=== PATIENT | male | born 1960 | race Caucasian/White ===

== ENCOUNTER 2017-08-16 08:33 | Day surgery (SDC) | payer OTHER ==
--- NOTE | 2017-08-11 11:14 | HP ---
DATE OF ADMISSION: 08/16/2017 DATE OF DICTATION: 08/10/2017 Patient to be admitted through the Ambulatory Surgical Service at [facility] in the near future, date to be determined. HISTORY: A 56-year-old man admitted through the Ambulatory Surgical Service for laparoscopic removal of his gallbladder as management of symptomatic cholelithiasis and chronic cholecystitis. For the past few years, the patient has had several bouts of severe chest and upper abdominal discomfort. His last attack was in April 2016. At that time, an ultrasound evaluation of the abdomen had demonstrated evidence of multiple gallstones with a mildly thickened gallbladder wall. Patient had been advised to consider cholecystectomy but had declined in the past. At this juncture, however, he has decided to move forward with cholecystectomy. As he also suffers with GERD, it is sometimes difficult to differentiate whether his symptoms are related to his reflux or his gallbladder. No underlying fatty food intolerance by history. No unintentional weight loss. No history of jaundice. PAST MEDICAL HISTORY: Nil except an underlying thyroid disorder. No history of heart disease, hypertension, diabetes, respiratory, renal, or hepatic insufficiency. PAST SURGICAL HISTORY: Significant for bilateral laparoscopic inguinal hernia repair in 2003. ALLERGIES: Possibly IODINE as he is allergic to SHRIMP. No other known medication allergies. CURRENT MEDICATIONS: Prilosec, levothyroxine. SOCIAL HISTORY: Positive tobacco, 1/2 pack per day. Positive alcohol, 2 drinks a day. FAMILY HISTORY: Father with a history of CVA and Alzheimer disease. Mother and siblings well. REVIEW OF SYSTEMS: Nil. PHYSICAL EXAMINATION: Abdomen: Large, soft, nontender. No palpable findings. Gallbladder ultrasound of April 22, 2016, demonstrates multiple gallstones with mild thickening of the gallbladder wall. IMPRESSION: Chronic cholecystitis/symptomatic cholelithiasis. PLAN: Laparoscopic cholecystectomy/possible open cholecystectomy. Indications, alternatives, and possible complications reviewed. Consent obtained. Patient will be seen preoperatively by Dr. Jabari Parada. Please refer to his notes for those medical details. FRANCHESKA OLIVARES M.D. [id number] cc: Jabari Parada MD [facility]
[2017-08-16 09:46] VITALS: BMI 33.2
[2017-08-16] MEDS ORDERED: morphine SULFATE 4 MG/ML VIAL IVPB PRN (11:01)
[2017-08-16] MEDS ORDERED: ONDANSETRON 4 MG/2 ML VIAL IVPUSH PRN (11:01)
[2017-08-16] MEDS ORDERED: ACETAMINOPHEN 325 MG TABLET (FP) PO PRN (11:01)
[2017-08-16] MEDS ORDERED: oxyCODONE HCL 5 MG TABLET PO PRN (11:01)
[2017-08-16] MEDS ORDERED: D5-1/2NS+20 MEQ KCL - 20 MEQ/1,000 ML INFUS.BAG IV SCH (11:15)
[2017-08-16] MEDS ORDERED: LACTATED RINGERS SOLUTION 1,000 ML IV SCH (11:45)
--- NOTE | 2017-08-16 20:50 | OP ---
DATE OF OPERATION: 08/16/2017 PREOPERATIVE DIAGNOSIS: Chronic cholecystitis/cholelithiasis. POSTOPERATIVE DIAGNOSIS: Chronic cholecystitis/cholelithiasis. PROCEDURE: Laparoscopic cholecystectomy. OPERATING SURGEON: Bobby Garcia MD HUMAN PERFORMANCE PROFESSOR: Fransisco Cuba MD ANESTHESIA: Pat Lopez MD - General. HISTORY: A 56-year-old man admitted to the hospital for laparoscopic removal of his gallbladder as management of chronic cholecystitis and cholelithiasis. Indications, alternatives, possible complications reviewed. Consent obtained. DESCRIPTION OF PROCEDURE: With the patient in supine position, using general anesthesia, the abdomen was prepped and draped in sterile fashion using chlorhexidine. A small infraumbilical incision was made, through which a Veress needle was placed into the abdominal cavity. The abdominal cavity was insufflated to an adequate pressure and volume using CO2 gas. The Veress needle was removed, and an 11-mm trocar port placed through the infraumbilical wound. The camera lens was passed through the infraumbilical port. The intraabdominal cavity was visualized. Under direct vision, two 5-mm right anterolateral ports were placed, through which clamps were passed to maintain traction on the gallbladder and aid in the dissection. An 11-mm port was placed in the epigastrium, through which the operating instruments were passed. Limited exploration revealed significant adhesions enveloped the gallbladder. These were taken down under direct vision, exposing the entire gallbladder and hepatoduodenal ligament. No other significant findings were encountered other than the gallbladder appeared mildly thickened. The peritoneum of the hepatoduodenal ligament was incised. The cystic duct was identified. The cystic duct and bile duct junction was noted. The cystic duct was clipped proximally and distally and divided. The adjacent artery was managed similarly. The gallbladder was then removed from the gallbladder bed, lysing its attachment using electrocautery. Prior to complete disconnection, bed was inspected and adequate hemostasis ensured. The gallbladder was disconnected. All ports were then removed under direct vision. No bleeding identified. Ultimately, the gallbladder was passed and delivered through the umbilical port site. The gas was allowed to escape from the peritoneal cavity. The fascia at the umbilicus was approximated with interrupted No. 1 Vicryl sutures. All skin wounds were closed using subcuticular 4-0 Biosyn sutures. Needle, sponge, and instrument count correct. ESTIMATED BLOOD LOSS: Minimal. SPECIMEN: Gallbladder. DRAINS: None. The patient tolerated the procedure. The procedure was terminated. Eneida [id number] MTDD
[2017-08-17] MEDS ORDERED: LEVOTHYROXINE NA 100 MCG TABLET (FP) PO SCH (07:00)
[2017-08-17 07:14] VITALS: BP 115/98; PULSE 70; TEMP 97.6
--- NOTE | 2017-08-17 09:36 | PN ---
Progress Note (short form) - Note Progress Note: 56M POD1 s/p lap cholecystectomy under [facility]. Pt states that his pain is well controlled and reports no anesthetic complications. AVSS. Pt seen walking comfortably around the floor. D/C planning as per primary team.
[2017-08-17] MEDS ORDERED: ENOXAPARIN NA (PORCINE) 40 MG/0.4 ML DISP.SYRIN SQ SCH (10:00)
[2017-08-17] MEDS ORDERED: PANTOPRAZOLE SODIUM 40 MG VIAL IVPUSH SCH (10:00)
--- NOTE | 2017-08-18 15:12 | PATH ---
Surgical Pathology Report Patient Name: [facility]. Rec. #: [id number] /Age/Gender: 1960 (Age: 56) / M Account: [id number] Location: [facility] AMBULATORY Taken: 08/16/2017 Received: 08/16/2017 Reported: 08/18/2017 Physicians: Bobby Garcia M.D. Specimen(s) Received GALLBLADDER Clinical History Chronic cholecystitis, symptomatic cholelithiasis Final Diagnosis GALLBLADDER, CHOLECYSTECTOMY: CHRONIC CHOLECYSTITIS AND CHOLELITHIASIS. PERICYSTIC LYMPH NODE WITH NONCASEATING GRANULOMAS AND LIPOGRANULOMAS. ACID FAST AND FUNGAL (PAS) STAINS ARE NEGATIVE. Comment: The presence of noncaseating and lipogranulomas within the pericystic lymph node is a nonspecific finding, and may be the result of lymphatic obstruction, radiologic contrast material, or a reaction to lipid material and blood stream. The possibility of sarcoid and also not be completely excluded. Recommend correlation with clinical findings and follow up as clinically indicated. Electronically Signed Tarik Bobo M.D. Gross Description Received in formalin, labeled "gallbladder," is a 8.5 x 2.3 x 2.3 cm. gallbladder with a 0.3 cm. in length portion of cystic duct attached. There is a 0.6 cm greatest dimension periductal lymph node present. The outer surface is holt green and varies from smooth to shaggy. The lumen contains green, tenacious bile as well as multiple brown, irregular choleliths averaging 1.2 cm in greatest dimension. The mucosa is green and velvety with focal erosions. The wall of the gallbladder measures 0.1 cm. in thickness. Cocktail Server sections including one bisected lymph node are submitted in one cassette. 08/17/201708/17/2017
== END 2017-08-17 11:00 | disposition home or self-care (01) ==
LOC: FASU 08:33 → FM/S 16:55 → FASU 08-17 11:00
PROVIDERS: ATTEND Surgery
PROC: 0FT44ZZ Resection of Gallbladder, Percutaneous Endoscopic Approach (ICD-10-PCS; principal; 2017-08-16 12:40)
DX: K80.10 Calculus of gallbladder with chronic cholecystitis without obstruction (principal)
CPT/HCPCS: 88304-TC; 88312-TC; 94010; 94760

== ENCOUNTER 2017-10-30 07:27 | Day surgery (SDC) | payer OTHER ==
[2017-10-25 11:17] VITALS: BMI 34.0
[2017-10-30] MEDS ORDERED: PROPOFOL 20 ML ONE ×2 (07:31)
[2017-10-30] MEDS ORDERED: LIDOCAINE HCL/PF 2% SDV 5ML VIAL ONE (07:33)
[2017-10-30 09:31] VITALS: TEMP 98
[2017-10-30 09:53] VITALS: PULSE 58
[2017-10-30 09:56] VITALS: BP 110/56
== END 2017-10-30 09:54 | disposition home or self-care (01) ==
LOC: FASU-ENDO 07:27
PROVIDERS: ATTEND Internal Medicine Gastroenterology
PROC: 0DJD8ZZ Inspection of Lower Intestinal Tract, Via Natural or Artificial Opening Endoscopic (ICD-10-PCS; principal; 2017-10-30 09:03)
DX: Z12.11 Encounter for screening for malignant neoplasm of colon (principal); Z83.71 Family history of colonic polyps; K57.30 Diverticulosis of large intestine without perforation or abscess without bleeding

== ENCOUNTER 2020-02-21 10:29 | Emergency (ER) | payer OTHER ==
--- NOTE | 2020-02-21 10:59 | TELE ---
HPI Do you have fever,cough or shortness of breath?: No - General Reason For Visit: COVID 19 TEST History Source: Patient Past History - Medical History Allergies/Adverse Reactions: Allergies Allergy/AdvReac Type Severity Reaction Status Date / Time No Known Drug Allergies Allergy Verified 10/25/17 11:17 shrimp Allergy Severe wheezing Uncoded 10/25/17 11:17 Home Medications: Ambulatory Orders Allopurinol 300 mg PO DAILY 10/25/17 Anemia: No Asthma: No Cancer: No Cardiac Disorders: No CVA: No COPD: No CHF: No Dementia: No Diabetes: No GI Disorders: No Disorders: No HTN: No Hypercholesterolemia: No Liver Disease: No Seizures: No Thyroid Disease: Yes (HYPOTHYROIDISM) - Surgical History Abdominal Surgery: Yes (RIGHT INGUINAL HERNIA REPAIR ABOUT 2005) Appendectomy: No Cardiac Surgery: No Cholecystectomy: Yes Lung Surgery: No Neurologic Surgery: No Orthopedic Surgery: No - Immunization History Td Vaccination: Yes Immunization Up to Date: No - Psycho-Social/Smoking History Smoking Status: Yes Smoking History: Current every day smoker Have you smoked in the past 12 months: Yes Number of Cigarettes Smoked Daily: 10 If you are a former smoker, when did you quit?: 08/10/17 'Breaking Loose' booklet given: 04/22/16 Review of Systems - Review of Systems Constitutional: No: Chills, Fever Respiratory: No: Shortness of Breath Cardiac (ROS): No: Chest Pain *Physical Exam - Physical Exam HEENT: positive: Normal Voice - Medical Decision Making 02/21/20 10:58 Pt requested covid test specifically for Monday in prep for cardiac procedure next Has no sxs at this time Discharge Diagnosis at time of Disposition: Encounter by telehealth for suspected COVID-19 - Referrals Follow-up Referral(s): Jabari Parada MD [Primary Care Provider] - - Patient Instructions - Discharge Disposition: HOME
== END 2020-02-21 10:59 | disposition home or self-care (01) ==
LOC: JVIRT 10:29
DX: Z11.59 Encounter for screening for other viral diseases (principal)
CPT/HCPCS: Q3014-GT; U0003

== ENCOUNTER 2020-11-13 09:33 | Emergency (ER) | payer SELFPAY | END 2020-11-13 12:01 | disposition home or self-care (01) | LOC: JVIRT 09:33 | DX: Z11.52 Encounter for screening for COVID-19 (principal) | CPT/HCPCS: Q3014-GT ==

== ENCOUNTER 2021-08-05 19:24 | Observation (INO) | payer OTHER ==
[2021-08-05 20:40] LABS: ALBUMIN 3.7 g/dl (3.4-5.0); BILIRUBIN,TOTAL 0.6 mg/dl (0.2-1); CALCIUM 9.6 mg/dl (8.5-10); CREATININE 1.1 mg/dl (0.55-1.3); MAGNESIUM 1.9 mg/dL (1.8-2.4); TOT PROT 6.3 g/dl (6.4-8.2)
[2021-08-05 21:44] LABS: EOS % 3.7 % (0-4.5); HEMATOCRIT 44.1 % (35.4-49); HEMOGLOBIN 15.5 GM/dL (11.7-16.9); LYMPH % 31.3 % (8-40); MCH 34.7 pg (25.7-33.7); MCHC 35.2 g/dl (32.0-35.9); MEAN CELL VOLUME 98.5 fl (80-96); MEAN PLT VOLUME 8.2 fl (7.5-11.1); MONO % 7.7 % (3.8-10.2); NEUT % 56.3 % (42.8-82.8); PLATELET COUNT 161 10^3/uL (134-434); RBC 4.48 M/mm3 (4.00-5.60); RDW 12.9 % (11.9-15.9); WHITE BLOOD COUNT 5.2 K/mm3 (4.0-10.0)
[2021-08-05] MEDS ORDERED: POLYETHYLENE GLYCOL (HEALTHYLAX) 3350 17 GM PACKET PO PRN (23:05)
[2021-08-05] MEDS ORDERED: ACETAMINOPHEN 325 MG TABLET (FP) PO PRN (23:05)
[2021-08-05 23:50] VITALS: BMI 38.0
[2021-08-06] MEDS: PANTOPRAZOLE 20 MG TABLET PO SCH (06:37)
[2021-08-06] MEDS ORDERED: LEVOTHYROXINE NA 100 MCG TABLET (FP) ONE (09:27)
[2021-08-06 09:28] LABS: CALCIUM 9.2 mg/dl (8.5-10); CREATININE 1.1 mg/dl (0.55-1.3); MAGNESIUM 1.9 mg/dL (1.8-2.4)
[2021-08-06] MEDS ORDERED: LEVOTHYROXINE NA 75 MCG TABLET (FP) ONE (09:28)
[2021-08-06] MEDS: APIXABAN 5 MG TABLET PO SCH ×2 (09:29→21:23)
[2021-08-06] MEDS: LEVOTHYROXINE 75 MCG, LEVOTHYROXINE 100 MCG PO SCH (09:30)
[2021-08-06] MEDS: ALLOPURINOL 100 MG TABLET (FP) PO SCH ×2 (09:31→21:23)
[2021-08-06] MEDS: CHOLECALCIFEROL (VIT D3) 1,000 UNIT (25 MCG) TABLET PO SCH (09:36)
[2021-08-06 09:53] LABS: BASO % 0.8 % (0-2.0); EOS % 3.1 % (0-4.5); HEMOGLOBIN 15.3 GM/dL (11.7-16.9); LYMPH % 20.3 % (8-40); MCH 34.6 pg (25.7-33.7); MCHC 34.9 g/dl (32.0-35.9); MEAN CELL VOLUME 99.1 fl (80-96); MEAN PLT VOLUME 8.1 fl (7.5-11.1); MONO % 5.5 % (3.8-10.2); NEUT % 70.3 % (42.8-82.8); PLATELET COUNT 158 10^3/uL (134-434); RBC 4.44 M/mm3 (4.00-5.60); RDW 12.9 % (11.9-15.9); WHITE BLOOD COUNT 4.6 K/mm3 (4.0-10.0)
[2021-08-06] MEDS ORDERED: LEVOTHYROXINE NA 150 MCG TABLET PO SCH (10:00)
[2021-08-06] MEDS ORDERED: ALLOPURINOL 100 MG TABLET (FP) PO SCH (10:00)
[2021-08-06] MEDS ORDERED: amLODIPine BESYLATE 2.5 MG TABLET (FP) PO SCH (10:00)
[2021-08-06] MEDS ORDERED: POTASSIUM CHLORIDE TABS 20 MEQ TABLET.ER (FP) PO ONE (10:30)
[2021-08-06] MEDS ORDERED: MAGNESIUM OXIDE 400 MG TABLET (FP) PO ONE (10:30)
[2021-08-06] MEDS ORDERED: metoPROLOL SUCCINATE 25 MG TAB.SR.24H (FP) PO ONE (16:28)
[2021-08-07 05:57] VITALS: TEMP 98.1
[2021-08-07] MEDS ORDERED: LEVOTHYROXINE NA 100 MCG TABLET (FP) ONE (06:21)
[2021-08-07] MEDS ORDERED: LEVOTHYROXINE NA 75 MCG TABLET (FP) ONE (06:21)
[2021-08-07] MEDS: PANTOPRAZOLE 20 MG TABLET PO SCH (06:43)
[2021-08-07] MEDS: LEVOTHYROXINE 75 MCG, LEVOTHYROXINE 100 MCG PO SCH (06:43)
[2021-08-07] MEDS ORDERED: metoPROLOL SUCCINATE 25 MG TAB.SR.24H (FP) ONE (08:57)
[2021-08-07 09:09] VITALS: BP 112/74; PULSE 69
[2021-08-07] MEDS: APIXABAN 5 MG TABLET PO SCH (09:35)
[2021-08-07] MEDS: ALLOPURINOL 100 MG TABLET (FP) PO SCH (09:35)
[2021-08-07] MEDS: CHOLECALCIFEROL (VIT D3) 1,000 UNIT (25 MCG) TABLET PO SCH (09:35)
[2021-08-07] MEDS ORDERED: METOPROLOL SUCCINATE 50 MG, METOPROLOL SUCCINATE 25 MG PO SCH (10:00)
== END 2021-08-07 10:10 | disposition home or self-care (01) ==
LOC: FER 19:24 → UNDOADMOB 23:19 → FM/S 23:19 → INTOOBSV 23:19 → FM/S 08-06 11:45
PROVIDERS: ADMIT Internal Medicine; ATTEND Nurse Practitioner Family
DX: R55 Syncope and collapse (principal); K57.92 Diverticulitis of intestine, part unspecified, without perforation or abscess without bleeding; I48.91 Unspecified atrial fibrillation; M10.9 Gout, unspecified; G47.33 Obstructive sleep apnea (adult) (pediatric); R79.89 Other specified abnormal findings of blood chemistry; Z87.738 Personal history of other specified (corrected) congenital malformations of digestive system; E66.9 Obesity, unspecified; Z68.38 Body mass index [BMI] 38.0-38.9, adult; Z86.39 Personal history of other endocrine, nutritional and metabolic disease; Z91.013 Allergy to seafood; F17.210 Nicotine dependence, cigarettes, uncomplicated
CPT/HCPCS: 36415; 70450-TC; 71045-TC-FY; 80048; 80053; 82550; 82553; 83735; 84439; 84443; 84481; 84484; 85025; 93005; 99285-25; C9803; G0378; U0003; U0005